=== PATIENT | male | born 1995 | race Caucasian/White ===

== ENCOUNTER 2018-03-12 18:05 | Emergency (ER) | payer SELFPAY ==
[2018-03-12] MEDS ORDERED: ONDANSETRON HCL/PF 4 MG/ 2ML VIAL IVP ONE (19:07)
[2018-03-12 19:12] LABS: ABG PH 7.46 (7.35-7.45)
[2018-03-12 19:13] LABS: ABG BASE EXCESS 0.8 (-2 - +2)
[2018-03-12] MEDS ORDERED: 0.9 % SODIUM CHLORIDE 1,000 ML IV ONE (19:38)
[2018-03-12] MEDS ORDERED: CALCIUM GLUCONATE 100 MG/ML VIAL IV ONE (19:42)
[2018-03-12] MEDS ORDERED: DEXTROSE 50% 50 ML DISP.SYRIN IVP ONE ×3 (19:42→21:36)
[2018-03-12] MEDS ORDERED: INSULIN REGULAR, HUMAN 100 UNIT/ML 3ML VIAL IV ONE (19:42)
[2018-03-12] MEDS ORDERED: fentaNYL CITRATE/PF 100 MCG/2 ML INJ. IVP ONE ×2 (19:53→21:11)
--- NOTE | 2018-03-12 20:49 | ED Physician Documentation ---
Abdominal Pain - HISTORIAN Historian: patient - HPI Stated Complaint: N/V/D Chief Complaint: Abdominal Pain Onset: days ago (2-3 days) Duration: constant Timing: worse Context: denies: out of country travel, bad food, recent trauma Severity: severe Quality: pain Associated Symptoms: nausea, vomiting, diarrhea ("too many to count"). denies: fever, chills, coffee ground emesis, grossly bloody stools Exacerbated by: nothing Relieved by: nothing Further Comments: yes (22 year old male patient presents with complaint of abdominal pain for the past 2-3 days; reports severe diarrhea "too many to count", c/o nausea, reports pain 7/10. Patient state he moved to [place] and has not gotten started on his routine dialysis; last treatment was 03/08/18 at [facility]. Patient with mild right nose bleed noted; blood on shirt, pants and hands. Patient is a poor historian; falls asleep during ROS.) - ROS CONST: recent illness (appears chronically ill) GI/: none (denies) CVS/RESP: none EYES/ENT: none MS/SKIN/LYMPH: leg swelling, rash (started 2-3 days ago ) NEURO/PSYCH: none (denies) - SOCIAL HX Smoking History: cigarettes - FAMILY HX Family History: denies: none - PAST HX Past History: other (ESRD; "heart murmur") Surgeries/Procedures: other (patient cannot recall) Allergies/Adverse Reactions: Allergies Allergy/AdvReac Type Severity Reaction Status Date / Time No Known Allergies Allergy Verified 03/12/18 19:38 - VITAL SIGNS Vital Signs: Vital Signs Temp Pulse Resp BP Pulse Ox 98.2 F 79 16 182/115 95 03/12/18 18:06 03/12/18 18:06 03/12/18 18:06 03/12/18 18:06 03/12/18 18:06 - REVIEWED ASSESSMENTS Nursing Assessment Reviewed: Yes Vitals Reviewed: Yes Progress - Progress Progress: K 7.0 Insulin, D50 and Calcium gluconate given IV [address] results - extensive ascites. Patient denies any history of ascites. Will transfer back to [facility] for stat dialysis and further evaluation 2034 Call to [facility] [address] Miranda - EKG/XRAY/CT EKG: rhythm (1 degree AVB) ED Results Lab/Radiology - Lab Results Lab Results: Lab Results 03/12/18 19:00 pH 7.46 H (7.35-7.45) pCO2 34 mmhg L mmhg (35-48) pO2 74 mmhg L mmhg (83-108) HCO3 25.5 Meq/L Meq/L (21-28) ABG O2 Sat Calc/Sunitha 97 % % (93-100) ABG Base Excess 0.8 (-2 - +2) - Radiology Radiology Impressions: CT abdomen and pelvis without contrast CLINICAL HISTORY: Abnormal liver function test. Abdominal pain. TECHNIQUE: CT abdomen and pelvis is performed without oral or intravenous administration of contrast. Sagittal and coronal reconstructions are performed by the technologist. FINDINGS: The visualized lung bases are clear. There is extensive ascites. The liver and spleen demonstrate normal attenuation without focal defect. There is thinning of the renal cortex bilaterally consistent with atrophy. There is no obvious pancreatic or adrenal abnormality. Bladder is unremarkable. IMPRESSION: Extensive ascites. Cardiomegaly. Bilateral renal atrophy. AP chest CLINICAL HISTORY: Dyspnea. FINDINGS: Examination of the chest in AP upright view demonstrates cardiomegaly. Monitor leads superimpose the chest. Lungs are free of coalescent infiltrate. IMPRESSION: Cardiomegaly. Electronically signed on Mar 12, 2018 8:59:26 PM GUEST SERVICES DIRECTOR by: Constantin Mcrae - Orders Orders: ED Orders Category Date Time Status Place IV Lock 1T Care 03/12/18 18:33 Active CHEST 1VIEW [RAD] Stat Exams 03/12/[address] ABD & PELVIS W/O CON Stat Exams 03/12/18 Taken ARTERIAL BLOOD GAS Routine Lab 03/12/18 19:00 Completed ARTERIAL BLOOD GAS Stat Lab 03/12/18 Uncollected CBC/PLATELET/DIFF Stat Lab 03/12/18 18:33 Received CMP Stat Lab 03/12/18 Received LIPASE Stat Lab 03/12/18 Received POTASSIUM Stat Lab 03/12/18 Ordered PT-INR Stat Lab 03/12/18 18:46 Received PTT Stat Lab 03/12/18 19:59 Received 0.9 % Sodium Chloride [Normal Saline] 1,000 ml Med 03/12/18 19:38 Discontinued IV .STK-MED Calcium Gluconate Med 03/12/18 19:42 Discontinued 1,000 mg IV NOW ONE Dextrose 50% [Dextrose 50%-Water Syringe] Med 03/12/18 19:42 Discontinued 50 ml IVP NOW ONE Insulin Regular, Human [Humulin R] Med 03/12/18 19:42 Discontinued 10 unit IV NOW ONE Ondansetron HCl/Pf [Zofran 4 mg/2 ml] Med 03/12/18 19:07 Discontinued 4 mg IVP NOW ONE fentaNYL CITRATE/PF [Duragesic] Med 03/12/18 19:53 Discontinued 50 mcg IVP NOW ONE Abdominal Pain Physical Exam - Physical Exam General Appearance: moderate distress EENT: eye inspection normal, ARIAN, TM's nml, dry mucous membranes, other (scant epistaxis from right nare) RESPIRATORY: no resp distress, chest non-tender, breath sounds normal CVS: reg rate & rhythm, heart sounds normal, equal pulses, no murmur, no gallop, PMI nml, no JVD, no friction rub, murmur (aortic stenosis 5/6), PMI displaced laterally ABDOMEN: soft, tenderness (generalized), decreased BS, guarding, other (severe ascites) BACK: normal inspection, no CVA tenderness SKIN: warm/dry, other (Rash - petechie over abdomen and back; macopapular rash on trunk) EXTREMITIES: edema, other (A/V fistula left upper arm - bruits auscultated) NEURO: oriented X3, motor nml, sensation nml, mood/affect nml (flat, sleepy) Vital Signs: Vital Signs Temp Pulse Resp BP Pulse Ox 98.2 F 79 16 182/115 95 03/12/18 18:06 03/12/18 18:06 03/12/18 18:06 03/12/18 18:06 03/12/18 18:06 Discharge Clincal Impression: ESRD (end stage renal disease), Hyperkalemia, Cardiomegaly Ascites Qualifiers: Ascites type: other type Qualified Code(s): R18.8 - Other ascites Aortic stenosis Qualifiers: Cardiac valve disease etiology: etiology unspecified Qualified Code(s): I35.0 - Nonrheumatic aortic (valve) stenosis Referrals: Primary Doctor,No [Primary Care Provider] - 2 Days Condition: Serious Disposition: 02 XFER SHT-TRM HOSP Decision to Admit: [id number] Decision Time: 21:09
[2018-03-12 22:32] VITALS: BP 167/92
--- NOTE | 2018-03-13 06:50 | Diagnostic Imaging Report ---
VANESSA ROSENTHAL (ARCHITECTURAL DESIGNER) - ER [facility] [place] [facility] [address] [facility] [address] [place], [place]. [address] Report Submission Date: Mar 12, 2018 8:19:49 PM TRIPLE VALVE MECHANIC Patient Study Name: PURNIMA NEELY Date: Mar 12, 2018 7:58:55 PM TRIPLE VALVE MECHANIC Modality Type: CT\SR Gender: M Description: CT ABD PELVIS W/O CO : 94 Institution: [facility] Physician: VANESSA ROSENTHAL (ROSIE) - ER Please disregard the prior report. Corrected report follows: CT abdomen and pelvis without contrast CLINICAL HISTORY: Abnormal liver function test. Abdominal pain. TECHNIQUE: CT abdomen and pelvis is performed without oral or intravenous administration of contrast. Sagittal and coronal reconstructions are performed by the technologist. FINDINGS: The visualized lung bases are clear. There is extensive ascites. The liver and spleen demonstrate normal attenuation without focal defect. There is thinning of the renal cortex bilaterally consistent with atrophy. There is no obvious pancreatic or adrenal abnormality. Bladder is unremarkable. IMPRESSION: Extensive ascites. Cardiomegaly. Bilateral renal atrophy. Addendum electronically signed by Constantin Mcrae on March 12, 2018 8:23:17 PM RYLAN HERRERA
--- NOTE | 2018-03-13 06:50 | Diagnostic Imaging Report ---
VANESSA ROSENTHAL (MALL MANAGER) - ER [facility] [address] [facility] [address] Report Submission Date: Mar 12, 2018 8:59:26 PM MACHINE SEWER Patient Study Name: PURNIMA NEELY Date: Mar 12, 2018 8:35:31 PM MACHINE SEWER Modality Type: DX Gender: M Description: CHEST : 94 Institution: [facility] Physician: VANESSA ROSENTHAL (MALL MANAGER) - ER AP chest CLINICAL HISTORY: Dyspnea. FINDINGS: Examination of the chest in AP upright view demonstrates cardiomegaly. Monitor leads superimpose the chest. Lungs are free of coalescent infiltrate. IMPRESSION: Cardiomegaly. Electronically signed on Mar 12, 2018 8:59:26 PM MACHINE SEWER by: Constantin HERRERA
[2018-03-13 08:16] LABS: BASOPHILS % 0.3 (0.0-1.5); EOSINOPHILS % 1.4 % (0.0-6.8); MEAN CORPUSCULAR HEMOGLOBIN 25.4 pg (28.0-34.0); MONOCYTES % 8.3 % (0.0-11.0); NEUTROPHILS # 3.2 # k/uL (1.4-7.7)
== END 2018-03-12 21:48 | disposition short-term general hospital (02) ==
LOC: ED 18:05
DX: N18.6 End stage renal disease (principal); E87.5 Hyperkalemia; I51.7 Cardiomegaly; R18.8 Other ascites; I35.0 Nonrheumatic aortic (valve) stenosis; Z99.2 Dependence on renal dialysis
CPT/HCPCS: 36415; 36600; 71045; 74176; 80053; 82803; 83690; 84132; 85025; 85610; 85730; 93005; 96374; 96375; 96376; 99285; J0610; J1815; J2405; J3010; S1016

== ENCOUNTER 2018-04-19 15:06 | Emergency (ER) | payer SELFPAY ==
--- NOTE | 2018-04-19 15:09 | ED Physician Documentation ---
General Adult - HISTORIAN Historian: patient - HPI Stated Complaint: abdominal pain Chief Complaint: Abdominal Pain Onset: days ago (2) Timing: still present Severity: mild Further Comments: yes (He states last week he was in [place] for pain in abdomen. He states for the last two days he has had n/v and no fever. He denies any vomiting today. He has had a small intake of water. He had dialysis yesterday. His provider is at [place]. He had a regular bowel movement this am. His pain is localized to lower left quad of abdomen and the abdomen is swollen according to him. Left leg is "usually" swollen although he states that he has noticed increased swelling. No pain in leg.) Last known Well Code/Unknown Code: Unknown - ROS CONST: no problems CVS/RESP: cough. denies: chest pain, shortness of breath GI/: abdominal pain, vomiting, nausea MS/SKIN/LYMPH: denies: rash NEURO/PSYCH: denies: headache - PAST HX Past History: other (CKD ) Immunizations: UTD Allergies/Adverse Reactions: Allergies Allergy/AdvReac Type Severity Reaction Status Date / Time No Known Allergies Allergy Verified 04/19/18 15:43 Home Medications: Ambulatory Orders Medication Instructions Recorded Calcium Acetate 1 tab PO DAILY 04/19/18 Carvedilol [Coreg] 1 tab PO BID 04/19/18 Labetalol HCl 3 tab PO BID 04/19/18 Lisinopril [Zestril] 1 tab PO BID 04/19/18 Nifedipine [Nifedipine ER] 1 tab PO DAILY 04/19/18 Sertraline HCl [Zoloft] 1 tab PO DAILY 04/19/18 hydrALAZINE HCL [Apresoline] 1 tab PO TID 04/19/18 - SOCIAL HX Smoking History: non-smoker Alcohol Use: none Drug Use: none - FAMILY HX Family History: No - VITAL SIGNS Vital Signs: Vital Signs Temp Pulse Resp BP Pulse Ox 167/92 03/12/18 21:48 - REVIEWED ASSESSMENTS Nursing Assessment Reviewed: Yes Vitals Reviewed: Yes Progress - Progress Progress: 1600: states pain is increasing DG 1640: pain slightly improved. He states at dialysis yesterday he left with a blood pressure of 160/128. DG 1700: Discussed case with Emma at [facility] for possible transfer DG 1720: requesting more pain med for pain 11/10 DG 1722: Emma called from [place] with accepting physician to ICU Dr Morgan MOORE ED Results Lab/Radiology - Radiology Radiology Impressions: Portable chest History: Cough PA and lateral chest dated April 09, 2018 is compared with March 12, 2018. The heart is enlarged, unchanged. Pulmonary vascularity is normal. Lungs are clear. There is no pleural effusion. Impression: Cardiomegaly, unchanged. No active disease. Electronically signed on Apr 19, 2018 4:26:19 PM CABIN CLEANING SUPERVISOR by: Machelle Michelle General Adult Physical Exam - PHYSICAL EXAM GENERAL APPEARANCE: no distress EENT: eye inspection normal, pharynx normal, dry mucous membranes NECK: normal inspection RESPIRATORY: no resp distress, chest non-tender, breath sounds normal CVS: reg rate & rhythm, heart sounds normal ABDOMEN: decreased BS, distended, guarding, other (mild tenderness with palpation on LLQ ) SKIN: jaundice EXTREMITIES: edema (2+ LEFT LOWER LEG ) NEURO: oriented X3, CN's nml as tested, motor nml, sensation nml, mood/affect nml, cognition normal Discharge Clincal Impression: Pericardial effusion, ESRD (end stage renal disease) Abdominal pain Qualifiers: Abdominal location: left lower quadrant Qualified Code(s): R10.32 - Left lower quadrant pain Ascites Qualifiers: Ascites type: other type Qualified Code(s): R18.8 - Other ascites Referrals: Primary Doctor,No [Primary Care Provider] - 2 Days Comments: Transfer to [place] Dr Morgan MOORE Condition: Critical Disposition: 02 XFER SHT-TRM HOSP Decision to Admit: NO Date of Decison to Admit: 04/19/18 Decision Time: 17:20
[2018-04-19] MEDS ORDERED: hydrALAZINE HCL 20 MG/1 ML IVP ONE ×2 (15:29→16:06)
[2018-04-19] MEDS ORDERED: 0.9 % SODIUM CHLORIDE 1,000 ML IV SCH (15:30)
[2018-04-19] MEDS ORDERED: fentaNYL CITRATE/PF 100 MCG/2 ML INJ. IVP ONE (15:32)
[2018-04-19] MEDS ORDERED: 0.9 % SODIUM CHLORIDE 1,000 ML IV ONE (15:34)
[2018-04-19 15:35] LABS: BASOPHILS % 0.3 (0.0-1.5); EOSINOPHILS % 2.6 % (0.0-6.8); MEAN CORPUSCULAR HEMOGLOBIN 25.7 pg (28.0-34.0); MONOCYTES % 5.3 % (0.0-11.0); NEUTROPHILS # 5.3 # k/uL (1.4-7.7)
[2018-04-19] MEDS ORDERED: HYDROmorphone HCL/PF 1 MG/ML VIAL IVP ONE ×2 (16:06→17:21)
[2018-04-19 18:09] VITALS: BP 191/132
--- NOTE | 2018-04-19 23:04 | Diagnostic Imaging Report ---
BHARGAV ZEE [facility] [address] [facility] [address] [place], [place]. [address] Report Submission Date: Apr 19, 2018 4:42:40 PM TUG BOAT ENGINEER Patient Study Name: PURNIMA NEELY Date: Apr 19, 2018 3:57:09 PM TUG BOAT ENGINEER Modality Type: CT\SR Gender: M Description: CT ABD PELVIS W/O CO : 94 Institution: [facility] Physician: BHARGAV ZEE CT abdomen and pelvis without contrast History: Abdominal pain. The patient received dialysis 3 times a week Technique: Helically acquired images were obtained from the hemidiaphragms to the pelvic floor without IV contrast or oral contrast. Findings: There is a very large amount of ascites throughout the abdomen and pelvis. The amount of ascites is much greater than expected typically in the setting of peritoneal dialysis. Additionally, no peritoneal dialysis catheter is identified. Please correlate clinically in this regard. There is a small pericardial effusion as well. On these images without IV contrast, which limits solid organ evaluation, the liver, spleen, adrenal glands and pancreas are unremarkable. The kidneys are severely atrophic bilaterally with small cysts. There are small calcifications laterally at the lower pole of the right kidney, possibly calyceal but possibly cortical. Secondary to the ascites, the bowel loops are centralized. There is a structure at the right lower quadrant which probably represents the appendix and appears normal. No free air is noted. The abdominal aorta is normal in caliber. Shotty retroperitoneal lymph nodes are present, probably reactive in nature in this young patient. The bladder is completely decompressed. Seminal vesicles and prostate gland are unremarkable. Several borderline to mildly enlarged bilateral inguinal nodes are present. The largest of these is on the right measuring 3.0 x 1.5 cm. These bilateral inguinal nodes are probably reactive. Please correlate clinically. Lung bases are clear. Bones are extremely dense diffusely consistent with renal osteodystrophy. Impression: THERE IS A LARGE AMOUNT OF ASCITES THROUGHOUT THE ABDOMEN AND PELVIS, MUCH GREATER THAN TYPICALLY SEEN IN THE SETTING OF PERITONEAL DIALYSIS. ADDITIONALLY, NO PERITONEAL DIALYSIS CATHETER IS SEEN. Please clinically correlate with regard to these findings. Due to the large amount of ascites, the bowel loops are centralized within the abdomen but there is no evidence for intestinal obstruction. No free air is seen. Small pericardial effusion. Severely atrophic kidneys with small cysts and small calcifications at the lower pole of the right kidney as described. There are several shotty retroperitoneal nodes and there are shotty to mildly enlarged bilateral inguinal lymph nodes. These findings are probably reactive in nature in this young patient. Please correlate clinically in this regard. Findings consistent with renal osteodystrophy. Electronically signed on Apr 19, 2018 4:42:40 PM TUG BOAT ENGINEER by: Machelle HERRERA
--- NOTE | 2018-04-19 23:05 | Diagnostic Imaging Report ---
BHARGAV ZEE [facility] [address] [facility] [address] [place], [place]. [address] Report Submission Date: Apr 19, 2018 4:26:19 PM BILINGUAL RECRUITER Patient Study Name: PURNIMA NEELY Date: Apr 19, 2018 3:39:03 PM BILINGUAL RECRUITER Modality Type: DX Gender: M Description: CHEST : 94 Institution: [facility] Physician: BHARGAV ZEE Portable chest History: Cough PA and lateral chest dated April 09, 2018 is compared with March 12, 2018. The heart is enlarged, unchanged. Pulmonary vascularity is normal. Lungs are clear. There is no pleural effusion. Impression: Cardiomegaly, unchanged. No active disease. Electronically signed on Apr 19, 2018 4:26:19 PM BILINGUAL RECRUITER by: Machelle Michelle Addendum: The title of this report should be PA and lateral chest not portable chest Addendum electronically signed by Machelle Michelle on April 19, 2018 4:27:10 PM BILINGUAL RECRUITER MTDD
== END 2018-04-19 18:21 | disposition short-term general hospital (02) ==
LOC: ED 15:06
DX: I31.3 Pericardial effusion (noninflammatory) (principal); N18.6 End stage renal disease; R10.32 Left lower quadrant pain; R18.8 Other ascites; Z99.2 Dependence on renal dialysis
CPT/HCPCS: 36415; 71046; 74176; 80053; 83690; 83880; 85025; 96365; 96375; 96376; 99285; J0360; J1170; J3010; J7030; S1016

== ENCOUNTER 2018-04-29 00:36 | Emergency (ER) | payer SELFPAY ==
--- NOTE | 2018-04-29 00:48 | ED Physician Documentation ---
General Adult - HISTORIAN Historian: patient - HPI Stated Complaint: R flank pain, shoulder pain Chief Complaint: General Adult Onset: days ago (4) Timing: still present Severity: moderate Further Comments: yes (Pt is a 23 yo male with chronic kidney disease on hemodialysis (MWFRI) and HTN seen here earlier this month and transferred to his providers at [facility]. Pt at that time, 10 days ago, had significant ascites, a small pericarial effusion, and elevated lipase. Pt returns to ER tonight with R flank pain and R shoulder pain. Pt reports n/v station captain.) - ROS CONST: weakness, chills EYES/ENT: none CVS/RESP: none GI/: abdominal pain, vomiting, nausea MS/SKIN/LYMPH: none - PAST HX Past History: other (ESRD, Ascites, Anemia, elevated lipase, depression, restless leg syndrome) Allergies/Adverse Reactions: Allergies Allergy/AdvReac Type Severity Reaction Status Date / Time No Known Allergies Allergy Verified 04/29/18 02:36 Home Medications: Ambulatory Orders Medication Instructions Recorded Calcium Acetate 1 tab PO DAILY 04/19/18 Carvedilol [Coreg] 1 tab PO BID 04/19/18 Labetalol HCl 3 tab PO BID 04/19/18 Lisinopril [Zestril] 1 tab PO BID 04/19/18 Nifedipine [Nifedipine ER] 1 tab PO DAILY 04/19/18 Sertraline HCl [Zoloft] 1 tab PO DAILY 04/19/18 hydrALAZINE HCL [Apresoline] 1 tab PO TID 04/19/18 - SOCIAL HX Smoking History: non-smoker - FAMILY HX Family History: No - VITAL SIGNS Vital Signs: Vital Signs Temp Pulse Resp BP Pulse Ox 191/132 04/19/18 18:06 - REVIEWED ASSESSMENTS Nursing Assessment Reviewed: Yes Vitals Reviewed: Yes Progress - Progress Progress: CXR & ABD X-ray: Findings: The heart is enlarged. Pulmonary vascularity is increased from the age. The bowel gas pattern is nonspecific. The entire abdomen and pelvis are not on the field of view.. No renal calcifications are identified. Impression: Large heart and pulmonary vessels for the patient's age The visualized abdomen is unremarkable portions excluded Dilaudid 1 mg IV x 2 Zofran 4 mg IV x 2 Transfer to [facility], Dr. Caal. - EKG/XRAY/CT EKG: NSR (HR=73; 1st degree A-V block; ) General Adult Physical Exam - PHYSICAL EXAM GENERAL APPEARANCE: moderate distress EENT: pharynx normal NECK: normal inspection, supple RESPIRATORY: no resp distress, chest non-tender, breath sounds normal CVS: reg rate & rhythm, heart sounds normal ABDOMEN: soft, normal bowel sounds, tenderness (R abd & flank), other (possible ascites) BACK: normal inspection, no CVA tenderness SKIN: warm/dry, pallor EXTREMITIES: normal range of motion, no evidence of injury, edema (brawny edema) NEURO: oriented X3, motor nml, sensation nml Discharge Clincal Impression: ESRD (end stage renal disease), Hyperkalemia, Pancreatitis Abdominal pain Qualifiers: Abdominal location: unspecified location Qualified Code(s): R10.9 - Unspecified abdominal pain Anemia Qualifiers: Anemia type: unspecified type Qualified Code(s): D64.9 - Anemia, unspecified Referrals: Primary Doctor,No [Primary Care Provider] - 2 Days Condition: Stable Disposition: 02 XFER SHT-TRM HOSP Decision to Admit: NO Decision Time: 04:24
[2018-04-29] MEDS ORDERED: HYDROmorphone HCL/PF 1 MG/ML VIAL IVP ONE ×3 (01:07→04:36)
[2018-04-29] MEDS ORDERED: ONDANSETRON HCL/PF 4 MG/ 2ML VIAL IVP ONE ×2 (01:07→03:00)
[2018-04-29] MEDS ORDERED: HYDROmorphone HCL/PF 2 MG/ML VIAL ONE (02:57)
--- NOTE | 2018-04-29 04:20 | Diagnostic Imaging Report ---
MARCO JORDAN [facility] [address] [facility] [address] [address] Report Submission Date: Apr 29, 2018 3:27:35 AM TENNIS CENTRE MANAGER Patient Study Name: PURNIMA NEELY Date: Apr 29, 2018 3:02:38 AM TENNIS CENTRE MANAGER Modality Type: DX Gender: M Description: ABD SERIES PA CHEST : 94 Institution: [facility] Physician: MARCO JORDAN Upright chest and supine abdomen Clinical history: Abdominal pain Findings: The heart is enlarged. Pulmonary vascularity is increased from the age. The bowel gas pattern is nonspecific. The entire abdomen and pelvis are not on the field of view.. No renal calcifications are identified. Impression: Large heart and pulmonary vessels for the patient's age The visualized abdomen is unremarkable portions excluded Electronically signed on Apr 29, 2018 3:27:35 AM TENNIS CENTRE MANAGER by: Gilbert Suarez Addendum: An upright abdomen does not show free air. The image is not marked as upright Addendum electronically signed by Gilbert Suarez on April 29, 2018 3:28:57 AM TENNIS CENTRE MANAGER MTDD
[2018-04-29 05:03] VITALS: BP 135/83
[2018-04-29 10:49] LABS: BASOPHILS % 0.3 (0.0-1.5); EOSINOPHILS % 5.4 % (0.0-6.8); MONOCYTES % 6.5 % (0.0-11.0)
== END 2018-04-29 04:52 | disposition short-term general hospital (02) ==
LOC: ED 00:36
DX: I12.0 Hypertensive chronic kidney disease with stage 5 chronic kidney disease or end stage renal disease (principal); N18.6 End stage renal disease; E87.5 Hyperkalemia; K85.90 Acute pancreatitis without necrosis or infection, unspecified; D64.9 Anemia, unspecified; R10.9 Unspecified abdominal pain; Z99.2 Dependence on renal dialysis
CPT/HCPCS: 36415; 74022; 80053; 83690; 83880; 84484; 85025; 85610; 85730; 93005; 96374; 96375; 96376; 99285; J1170; J2405; S1016

== ENCOUNTER 2018-05-28 19:53 | Emergency (ER) | payer MEDICARE, OTHER ==
[2018-05-28] MEDS ORDERED: 0.9 % SODIUM CHLORIDE 500 ML IV ONE (19:56)
[2018-05-28] MEDS ORDERED: hydrALAZINE HCL 20 MG/1 ML IVP ONE (20:08)
[2018-05-28 20:27] LABS: BASOPHILS % 0.5 (0.0-1.5); EOSINOPHILS % 6.2 % (0.0-6.8); MEAN CORPUSCULAR HEMOGLOBIN 26.3 pg (28.0-34.0); NEUTROPHILS # 4.9 # k/uL (1.4-7.7)
[2018-05-28 20:37] LABS: eGFR (Non-African) 11
[2018-05-28] MEDS ORDERED: LISINOPRIL 5 MG TABLET PO ONE (20:52)
[2018-05-28] MEDS ORDERED: ONDANSETRON HCL/PF 4 MG/ 2ML VIAL IVP ONE (20:52)
[2018-05-28] MEDS ORDERED: HYDROmorphone HCL/PF 1 MG/ML VIAL IVP ONE (20:52)
[2018-05-28] MEDS ORDERED: HYDROmorphone HCL/PF 2 MG/ML VIAL ONE (20:53)
[2018-05-28] MEDS ORDERED: LISINOPRIL 5 MG TABLET ONE (20:54)
--- NOTE | 2018-05-28 21:29 | ED Physician Documentation ---
General Adult - HISTORIAN Historian: patient, paramedics - [facility] Stated Complaint: Abd pain, N/V Chief Complaint: General Adult Further Comments: yes (23 year old male patient brought in from home with nausea and vomiting. Patient underwent diaylsis today but had to stop treatment 1 hour early, states he has vomited multiple times today. Has not been able to take medication due to abdominal pain; reports taking his morning medications, did not take noon or afternoon medications. Initial BP 209/124) - ROS CONST: recent illness ([facility] admission 04/19 and 04/29) EYES/ENT: none CVS/RESP: shortness of breath (with exerction) GI/: abdominal pain, vomiting, nausea. denies: problems urinating, diarrhea MS/SKIN/LYMPH: leg swelling, ankle swelling - PAST HX Past History: CHF (chronic- combined), hypertension, other (ESRD, anemia of chronic disease, neuropathy) Surgeries/Procedures: other (periotoneal dialysis catheter, umbilical hernia repair) - SOCIAL HX Smoking History: non-smoker - FAMILY HX Family History: No - VITAL SIGNS Vital Signs: Vital Signs Temp Pulse Resp BP Pulse Ox 135/83 04/29/18 04:59 - REVIEWED ASSESSMENTS Nursing Assessment Reviewed: Yes Vitals Reviewed: Yes <CHAYA ROSENTHAL - Last Filed: 05/29/18 07:09> - VITAL SIGNS Vital Signs: Vital Signs Temp Pulse Resp BP Pulse Ox 72 16 164/101 99 05/29/18 06:00 05/29/18 06:00 05/29/18 06:00 05/29/18 06:00 <Kalee Mohamud - Last Filed: 05/29/18 21:19> - PAST HX Allergies/Adverse Reactions: Allergies Allergy/AdvReac Type Severity Reaction Status Date / Time No Known Allergies Allergy Verified 05/28/18 20:17 Home Medications: Ambulatory Orders Medication Instructions Recorded B Comp No3/Folic/C/Biotin/Zinc 1 tab PO DAILY 05/28/18 [Nephplex Rx Tablet] Calcium Acetate [Phoslyra] 2,001 mg PO TID 05/28/18 Cinacalcet HCl [Sensipar] 60 mg PO DAILY 05/28/18 CloNIDine HCL [Catapress] 0.2 mg PO WEEK 05/28/18 Clonidine [Catapres-Tts 1] 1 each TOP WEEK 05/28/18 Diltiazem HCl [Cardizem Cd] 240 mg PO DAILY 05/28/18 Epoetin Ajay [Epogen] 10,000 units SQ [id number] 05/28/18 Furosemide [Lasix] 80 mg PO BID 05/28/18 Gabapentin 100 cap PO DAILY 05/28/18 Hydralazine HCl [APRESOLINE] 100 mg PO TID 05/28/18 Labetalol HCl 300 mg PO BID 05/28/18 Lisinopril [Zestril] 80 mg PO DAILY 05/28/18 Minoxidil [Loniten] 5 mg PO DAILY 05/28/18 Paricalcitol [Zemplar] 3 ml IV 9 05/28/18 Pramipexole Di-HCl [Mirapex] 0.25 tab PO DAILY 05/28/18 Sevelamer Carbonate [Renvela] 800 mg PO TID 05/28/18 Tramadol HCl [Ultram] 50 mg PO Q8 05/28/18 Ondansetron HCl Rapdis [Zofran Odt] 4 mg PO Q8 PRN 2 Days #30 tab 05/29/18 Progress - Progress Progress: Call to [facility] - case discussed with Mignon 2244 BP now 170/105 after 20mg of hydralazine IV, 40mg of labetalol IV, lisinopril 40 mg po and coreg 25mg po. Patient given a total of 2mg of IV dilaudid for abdominal pain. [address] Bui - patient is well known to him, multiple admissions related to non-compliance of medications. Feel like patient is OK to send home and follow up tomorrow. Lab is better today than previous ER admissions. Patient playing video games on his cell phone at present. States abdominal pain is now gone. 2300 Patient does not have any one to pick him up tonight. His brother is working weight shifter and cannot come to pick him up. BP remains elevated. Will keep patient as extended ED, continue BP management and DC home in AM with brother. Extensive discussion and teaching with patient regarding medications. Risks and benefits explained. Patient does not have on clonidine patch. 0030 Med list from [facility] does not match list given by patient. Patient states "I take whatever is in the bottles I have at home". It is very unclear what patient is taking at home. Patient does not have a clonidine patch on. 0645 Lab reported error in input information last night. Now reporting proBNP at >20,000. Call to [facility], requested recollect on lab. 07 Report to Kalee COLON - lab reordered. - EKG/XRAY/CT EKG: rhythm (SR, rate 63) <CHAYA ROSENTHAL - Last Filed: 05/29/18 07:09> - Progress Progress: 729 Patient on cell phone playing a game when I entered the room. He complains of nausea/vomiting/diarrhea with abdominal pain the past 2 days. He is asking for pain medication. Tramadol was offered. He refused, he wants dilaudid. Still waiting on repeat labs ordered by Chaya. 0830 Discussed with [facility] Hospitalist, refused admission stating he does not meet criteria. They report a BNP last month of 56,000 so there is improvement on today's results of 20,000. Recommended medical compliance and following up with Dialysis tomorrow. <Kalee Mohamud - Last Filed: 05/29/18 21:19> ED Results Lab/Radiology - Lab Results Lab Results: Lab Results 05/28/18 05/28/18 20:15 20:15 WBC 7.30 K/ul K/ul (4.00-12.00) RBC 3.12 M/ul L M/ul (3.90-5.20) Hgb 8.2 g/dL L g/dL (12.0-18.0) Hct 25.6 % L % (37.0-53.0) MCV 82.0 fl fl (80.0-100.0) MCH 26.3 pg L pg (28.0-34.0) MCHC 32.1 g/dL g/dL (30.0-36.0) RDW 15.9 % H % (11.3-14.3) Plt Count 250 K/mm3 K/mm3 (130-400) Neut % (Auto) 66.6 % % (39.0-79.0) Lymph % (Auto) 21.7 % % (16.0-50.0) [place] % (Auto) 5.0 % % (0.0-11.0) Eos % (Auto) 6.2 % % (0.0-6.8) Baso % (Auto) 0.5 (0.0-1.5) Neut # (Auto) 4.9 # k/uL # k/uL (1.4-7.7) Lymph # (Auto) 1.6 # k/uL # k/uL (0.6-4.0) [place] # (Auto) 0.4 # k/uL # k/uL (0.0-0.9) Eos # (Auto) 0.5 # k/uL # k/uL (0.0-0.6) Baso # (Auto) 0.0 # k/uL # k/uL (0.0-0.5) Sodium 138 mmol/L mmol/L (136-145) Potassium 5.4 mmol/L H mmol/L (3.5-5.1) Chloride 93 mmol/L L mmol/L (98-107) Carbon Dioxide 32 mmol/L H mmol/L (22-30) BUN 42 mg/dL H mg/dL (9-20) Creatinine 6.81 mg/dL H mg/dL (0.66-1.25) Est GFR ( Amer) 13 L (60 - ) Est GFR (Non-Af Amer) 11 L (60 - ) Glucose 97 mg/dL mg/dL (74-106) Calcium 9.2 mg/dL mg/dL (8.4-10.2) Total Bilirubin 0.6 mg/dL mg/dL (0.2-1.3) AST 58 U/L H U/L (15-46) ALT 18 U/L U/L (13-69) Alkaline Phosphatase 95 U/L U/L (38-126) Total Protein 7.0 g/dL g/dL (6.3-8.2) Albumin 4.1 g/dL g/dL (3.5-5.0) Lipase 133 U/L U/L (23-300) - Radiology Radiology Impressions: Computed tomography abdomen pelvis without contrast History: Right abdominal pain and vomiting Findings: Transverse abdomen and pelvis sections are obtained without contrast reveal cardiomegaly, pulmonary vascular congestion, pulmonary edema, trace left pleural effusion, moderate ascites, marked bilateral renal atrophy, and normal caliber bowel loops. A small right renal stone and small bilateral renal cysts are present. The liver, spleen, pancreas, and adrenals are unremarkable. Diffuse bone sclerosis is present. Pelvic sections reveal unremarkable bowel loops including a normal appendix. The prostate and seminal vesicles are unremarkable. The urinary bladder is empty. A large amount of pelvic ascites is present. Impression: 1. Cardiomegaly, pulmonary edema, and trace left pleural effusion consistent with congestive heart failure. 2. Normal appendix. 3. Moderate to large amount of ascites. 4. Marked [place] renal atrophy and renal osteodystrophy. Electronically signed on May 28, 2018 10:12:33 PM HEEL COVERER MACHINE OPERATOR by: George Saenz Chest two views History: Left chest wall pain Findings: Pulmonary edema, cardiomegaly, and pulmonary vascular congestion are observed. There is no pleural effusion. Impression: Congestive heart failure. Electronically signed on May 28, 2018 10:09:48 PM HEEL COVERER MACHINE OPERATOR by: George Saenz - Orders Orders: ED Orders Category Date Time Status Place IV Lock 1T Care 05/28/18 19:56 Active CBC/PLATELET/DIFF Stat Lab 05/28/18 20:15 Completed CMP Stat Lab 05/28/18 20:15 Completed INFLUENZA A&B Stat Lab 05/28/18 21:04 Ordered LIPASE Stat Lab 05/28/18 20:15 Completed 0.9 % Sodium Chloride [Normal Saline] 500 ml Med 05/28/18 19:56 Discontinued IV NOW HYDROmorphone HCL/PF [Dilaudid] Med 05/28/18 20:52 Discontinued 1 mg IVP NOW ONE HYDROmorphone HCL/PF [Dilaudid] Med 05/28/18 20:53 Discontinued 2 mg .ROUTE .STK-MED ONE Lisinopril [Prinivil] Med 05/28/18 20:54 Discontinued 40 mg .ROUTE .STK-MED ONE Lisinopril [Prinivil] Med 05/28/18 20:52 Discontinued 40 mg PO NOW ONE Ondansetron HCl/Pf [Zofran] Med 05/28/18 20:52 Discontinued 4 mg IVP NOW ONE hydrALAZINE HCL [Apresoline] Med 05/28/18 20:08 Discontinued 20 mg IVP NOW ONE <CHAYA ROSENTHAL - Last Filed: 05/29/18 07:09> - Lab Results Lab Results: Lab Results 05/29/18 05/29/18 05/29/18 07:31 07:31 07:31 WBC 5.90 K/ul K/ul (4.00-12.00) RBC 3.26 M/ul L M/ul (3.90-5.20) Hgb 8.7 g/dL L g/dL (12.0-18.0) Hct 26.7 % L % (37.0-53.0) MCV 82.0 fl fl (80.0-100.0) MCH 26.7 pg L pg (28.0-34.0) MCHC 32.6 g/dL g/dL (30.0-36.0) RDW 15.5 % H % (11.3-14.3) Plt Count 229 K/mm3 K/mm3 (130-400) Neut % (Auto) 57.8 % % (39.0-79.0) Lymph % (Auto) 29.1 % % (16.0-50.0) [place] % (Auto) 6.2 % % (0.0-11.0) Eos % (Auto) 6.3 % % (0.0-6.8) Baso % (Auto) 0.6 (0.0-1.5) Neut # (Auto) 3.4 # k/uL # k/uL (1.4-7.7) Lymph # (Auto) 1.7 # k/uL # k/uL (0.6-4.0) [place] # (Auto) 0.4 # k/uL # k/uL (0.0-0.9) Eos # (Auto) 0.4 # k/uL # k/uL (0.0-0.6) Baso # (Auto) 0.0 # k/uL # k/uL (0.0-0.5) Sodium 138 mmol/L mmol/L (136-145) Potassium 6.0 mmol/L H mmol/L (3.5-5.1) Chloride 94 mmol/L L mmol/L (98-107) Carbon Dioxide 29 mmol/L mmol/L (22-30) BUN 48 mg/dL H mg/dL (9-20) Creatinine 7.84 mg/dL H mg/dL (0.66-1.25) Estimated Creat Clear 19 Est GFR ( Amer) 11 L (60 - ) Est GFR (Non-Af Amer) 9 L (60 - ) Glucose 85 mg/dL mg/dL (74-106) Calcium 9.5 mg/dL mg/dL (8.4-10.2) Total Bilirubin 0.7 mg/dL mg/dL (0.2-1.3) AST 30 U/L U/L (15-46) ALT 17 U/L U/L (13-69) Alkaline Phosphatase 99 U/L U/L (38-126) NT-Pro-B Natriuret Pep > 89255.0 pg/mL H pg/mL (15.0-125.0) Total Protein 7.3 g/dL g/dL (6.3-8.2) Albumin 4.3 g/dL g/dL (3.5-5.0) Lipase Influenza Type A Ag Influenza Type B Ag 05/28/18 05/28/18 05/28/18 21:33 20:15 20:15 WBC 7.30 K/ul K/ul (4.00-12.00) RBC 3.12 M/ul L M/ul (3.90-5.20) Hgb 8.2 g/dL L g/dL (12.0-18.0) Hct 25.6 % L % (37.0-53.0) MCV 82.0 fl fl (80.0-100.0) MCH 26.3 pg L pg (28.0-34.0) MCHC 32.1 g/dL g/dL (30.0-36.0) RDW 15.9 % H % (11.3-14.3) Plt Count 250 K/mm3 K/mm3 (130-400) Neut % (Auto) 66.6 % % (39.0-79.0) Lymph % (Auto) 21.7 % % (16.0-50.0) [place] % (Auto) 5.0 % % (0.0-11.0) Eos % (Auto) 6.2 % % (0.0-6.8) Baso % (Auto) 0.5 (0.0-1.5) Neut # (Auto) 4.9 # k/uL # k/uL (1.4-7.7) Lymph # (Auto) 1.6 # k/uL # k/uL (0.6-4.0) [place] # (Auto) 0.4 # k/uL # k/uL (0.0-0.9) Eos # (Auto) 0.5 # k/uL # k/uL (0.0-0.6) Baso # (Auto) 0.0 # k/uL # k/uL (0.0-0.5) Sodium 138 mmol/L mmol/L (136-145) Potassium 5.4 mmol/L H mmol/L (3.5-5.1) Chloride 93 mmol/L L mmol/L (98-107) Carbon Dioxide 32 mmol/L H mmol/L (22-30) BUN 42 mg/dL H mg/dL (9-20) Creatinine 6.81 mg/dL H mg/dL (0.66-1.25) Estimated Creat Clear Est GFR ( Amer) 13 L (60 - ) Est GFR (Non-Af Amer) 11 L (60 - ) Glucose 97 mg/dL mg/dL (74-106) Calcium 9.2 mg/dL mg/dL (8.4-10.2) Total Bilirubin 0.6 mg/dL mg/dL (0.2-1.3) AST 58 U/L H U/L (15-46) ALT 18 U/L U/L (13-69) Alkaline Phosphatase 95 U/L U/L (38-126) NT-Pro-B Natriuret Pep Total Protein 7.0 g/dL g/dL (6.3-8.2) Albumin 4.1 g/dL g/dL (3.5-5.0) Lipase 133 U/L U/L (23-300) Influenza Type A Ag Negative (NEGATIVE) Influenza Type B Ag Negative (NEGATIVE) 05/28/18 19:56 WBC RBC Hgb Hct MCV MCH MCHC RDW Plt Count Neut % (Auto) Lymph % (Auto) [place] % (Auto) Eos % (Auto) Baso % (Auto) Neut # (Auto) Lymph # (Auto) [place] # (Auto) Eos # (Auto) Baso # (Auto) Sodium Potassium Chloride Carbon Dioxide BUN Creatinine Estimated Creat Clear Est GFR ( Amer) Est GFR (Non-Af Amer) Glucose Calcium Total Bilirubin AST ALT Alkaline Phosphatase NT-Pro-B Natriuret Pep > 80999.0 pg/mL H pg/mL (15.0-125.0) Total Protein Albumin Lipase Influenza Type A Ag Influenza Type B Ag - Orders Orders: ED Orders Category Date Time Status Place IV Lock 1T Care 05/28/18 19:[address] IV Lock 1T Care 05/29/18 06:57 Active CHEST 2VIEW [RAD] Stat Exams 05/28/[address] ABD & PELVIS W/O CON Stat Exams 05/28/18 Completed BNP [NT-proBNP] Stat Lab 05/28/18 19:56 Completed BNP [NT-proBNP] Stat Lab 05/29/18 07:31 Received CBC/PLATELET/DIFF Stat Lab 05/28/18 20:15 Completed CBC/PLATELET/DIFF Stat Lab 05/29/18 07:31 Completed CMP Stat Lab 05/28/18 20:15 Completed CMP Stat Lab 05/29/18 07:31 Received INFLUENZA A&B Stat Lab 05/28/18 21:33 Completed LIPASE Stat Lab 05/28/18 20:15 Completed 0.9 % Sodium Chloride [Normal Saline] 500 ml Med 05/28/18 19:56 Discontinued IV NOW Carvedilol [Coreg] Med 05/28/18 23:00 Discontinued 25 mg PO BS Carvedilol [Coreg] Med 05/28/18 22:34 Discontinued 25 mg PO NOW ONE HYDROmorphone HCL/PF [Dilaudid] Med 05/28/18 20:52 Discontinued 1 mg IVP NOW ONE HYDROmorphone HCL/PF [Dilaudid] Med 05/28/18 20:53 Discontinued 2 mg .ROUTE .STK-MED ONE Hydralazine HCl [Apresoline] Med 05/28/18 23:09 Discontinued 50 mg PO NOW ONE Hydralazine HCl [Apresoline] Med 05/29/18 06:33 Discontinued 50 mg PO NOW ONE Labetalol HCl [Trandate Inj] Med 05/28/18 21:44 Discontinued 20 mg IV NOW ONE Labetalol HCl [Trandate] Med 05/28/18 21:50 Discontinued 20 mg .ROUTE .STK-MED ONE Labetalol HCl [Trandate] Med 05/28/18 22:30 Discontinued 20 mg .ROUTE .STK-MED ONE Labetalol HCl [Trandate] Med 05/28/18 22:28 Discontinued 20 mg IV NOW ONE Lisinopril [Prinivil] Med 05/28/18 20:54 Discontinued 40 mg .ROUTE .STK-MED ONE Lisinopril [Prinivil] Med 05/28/18 20:52 Discontinued 40 mg PO NOW ONE Ondansetron HCl Rapdis [Zofran Odt] Med 05/29/18 04:29 Discontinued 4 mg .ROUTE .STK-MED ONE Ondansetron HCl Rapdis [Zofran Odt] Med 05/29/18 04:30 Discontinued 4 mg PO NOW ONE Ondansetron HCl/Pf [Zofran] Med 05/28/18 20:52 Discontinued 4 mg IVP NOW ONE Promethazine HCl [Phenergan] Med 05/29/18 04:26 Discontinued 25 mg PO .STK-MED ONE hydrALAZINE HCL [Apresoline] Med 05/28/18 20:08 Discontinued 20 mg IVP NOW ONE traMADol HCL [Ultram] Med 05/29/18 01:35 Discontinued 100 mg .ROUTE .STK-MED ONE traMADol HCL [Ultram] Med 05/29/18 01:34 Discontinued 50 mg PO NOW ONE traMADol HCL [Ultram] Med 05/29/18 07:31 Discontinued 50 mg PO NOW ONE EKG WITH COMPARISON Stat Ther 05/28/18 22:40 Completed <Kalee Mohamud - Last Filed: 05/29/18 21:19> General Adult Physical Exam - PHYSICAL EXAM GENERAL APPEARANCE: moderate distress EENT: eye inspection normal, ENT inspection normal, pharynx normal, no signs of dehydration, ARIAN, no nystagmus, TM's nml RESPIRATORY: no resp distress, chest non-tender, other (BBS decreased in bases) CVS: reg rate & rhythm, equal pulses, no gallop, PMI nml, no JVD, no friction rub, murmur (Mitral regurg, aortic stenosis auscultated.) ABDOMEN: no organomegaly, normal bowel sounds, no abdominal bruit, tenderness (RUQ and RLQ), decreased BS, distended SKIN: normal color, warm/dry, NR, INT, PAL, DR EXTREMITIES: non-tender, normal range of motion, no evidence of injury, edema (3+), other (LUQ with fistula; bruit present) NEURO: oriented X3, CN's nml as tested, motor nml, sensation nml, mood/affect nml <CHAYA ROSENTHAL - Last Filed: 05/29/18 07:09> - PHYSICAL EXAM RESPIRATORY: no resp distress (breath sounds clear to auscultation bilaterally. No crackles noted.), other <Kalee Mohmaud - Last Filed: 05/29/18 21:19> Discharge Decision to Admit: NO <CHAYA ROSENTHAL - Last Filed: 05/29/18 07:09> Decision to Admit: NO Date of Decison to Admit: 05/29/18 Decision Time: 09:12 <Kalee Mohamud - Last Filed: 05/29/18 21:19> Clincal Impression: ESRD (end stage renal disease), Hyperkalemia, Gastroenteritis Ascites Qualifiers: Ascites type: other type Qualified Code(s): R18.8 - Other ascites Prescriptions: Ondansetron HCl Rapdis [Zofran Odt] 4 mg PO Q8 PRN 2 Days #30 tab PRN Reason: nausea/vomiting Referrals: Primary Doctor,No [Primary Care Provider] - 2 Days Additional Instructions: 1. Take all medications as prescribed. 2. Do Dialysis as scheduled on Monday, Mon, Monday 3. Follow up with Professor [facility] [employer] as already scheduled 4. Return to ER for new or worsening symptoms Condition: Serious Disposition: 01 HOME, SELF-CARE
[2018-05-28] MEDS ORDERED: LABETALOL HCL 20 MG/4 ML SYRINGE IV ONE (21:44)
[2018-05-28] MEDS ORDERED: LABETALOL HCL 100 MG/20 ML ONE ×2 (21:50→22:30)
[2018-05-28] MEDS ORDERED: LABETALOL HCL 100 MG/20 ML IV ONE (22:28)
[2018-05-28] MEDS ORDERED: CARVEDILOL 12.5 MG TABLET PO ONE (22:34)
[2018-05-28] MEDS ORDERED: CARVEDILOL 12.5 MG TABLET PO SCH (23:00)
[2018-05-28] MEDS ORDERED: HYDRALAZINE HCL 25 MG TABLET PO ONE (23:09)
[2018-05-29] MEDS ORDERED: traMADol HCL 50 MG TABLET PO ONE ×2 (01:34→07:31)
[2018-05-29] MEDS ORDERED: traMADol HCL 50 MG TABLET ONE (01:35)
[2018-05-29] MEDS ORDERED: PROMETHAZINE HCL 25 MG TABLET PO ONE (04:26)
[2018-05-29] MEDS ORDERED: ONDANSETRON HCL 4 MG TAB.RAPDIS ONE (04:29)
[2018-05-29] MEDS ORDERED: ONDANSETRON HCL 4 MG TAB.RAPDIS PO ONE (04:30)
--- NOTE | 2018-05-29 05:37 | Diagnostic Imaging Report ---
VANESSA ROSENTHAL (FUR BUYER) - ER [facility] [address] [address] Report Submission Date: May 28, 2018 10:09:48 PM EXTRACTION SUPERVISOR Patient Study Name: PURNIMA NEELY Date: May 28, 2018 9:45:24 PM EXTRACTION SUPERVISOR Modality Type: DX Gender: M Description: CHEST 2VIEW : 89 Institution: [facility] Physician: VANESSA ROSENTHAL (FUR BUYER) - ER Chest two views History: Left chest wall pain Findings: Pulmonary edema, cardiomegaly, and pulmonary vascular congestion are observed. There is no pleural effusion. Impression: Congestive heart failure. Electronically signed on May 28, 2018 10:09:48 PM EXTRACTION SUPERVISOR by: George HERRERA
--- NOTE | 2018-05-29 05:37 | Diagnostic Imaging Report ---
VANESSA ROSENTHAL (ORCHID HAND) - ER [facility] [address] [facility] [address] [place], [place]. [address] Report Submission Date: May 28, 2018 10:12:33 PM CAR WRECKER Patient Study Name: PURNIMA NEELY Date: May 28, 2018 9:49:02 PM CAR WRECKER Modality Type: CT\SR Gender: M Description: CT ABD PELVIS W/O CO : 89 Institution: [facility] Physician: VANESSA ROSENTHAL (ROSIE) - ER Computed tomography abdomen pelvis without contrast History: Right abdominal pain and vomiting Findings: Transverse abdomen and pelvis sections are obtained without contrast reveal cardiomegaly, pulmonary vascular congestion, pulmonary edema, trace left pleural effusion, moderate ascites, marked bilateral renal atrophy, and normal caliber bowel loops. A small right renal stone and small bilateral renal cysts are present. The liver, spleen, pancreas, and adrenals are unremarkable. Diffuse bone sclerosis is present. Pelvic sections reveal unremarkable bowel loops including a normal appendix. The prostate and seminal vesicles are unremarkable. The urinary bladder is empty. A large amount of pelvic ascites is present. Impression: 1. Cardiomegaly, pulmonary edema, and trace left pleural effusion consistent with congestive heart failure. 2. Normal appendix. 3. Moderate to large amount of ascites. 4. Marked [place] renal atrophy and renal osteodystrophy. Electronically signed on May 28, 2018 10:12:33 PM CAR WRECKER by: George HERRERA
[2018-05-29] MEDS ORDERED: HYDRALAZINE HCL 25 MG TABLET PO ONE (06:33)
[2018-05-29 07:37] LABS: BASOPHILS % 0.6 (0.0-1.5); EOSINOPHILS % 6.3 % (0.0-6.8); MEAN CORPUSCULAR HEMOGLOBIN 26.7 pg (28.0-34.0); MONOCYTES % 6.2 % (0.0-11.0); NEUTROPHILS # 3.4 # k/uL (1.4-7.7)
[2018-05-29] MEDS ORDERED: hydrALAZINE HCL 20 MG/1 ML IVP ONE (08:45)
[2018-05-29 09:28] VITALS: BP 168/114
== END 2018-05-29 09:27 | disposition home or self-care (01) ==
LOC: ED 19:53
DX: N18.6 End stage renal disease (principal); E87.5 Hyperkalemia; K52.9 Noninfective gastroenteritis and colitis, unspecified; R18.8 Other ascites; Z99.2 Dependence on renal dialysis
CPT/HCPCS: 36415; 71046; 74176; 80053; 83690; 83880; 85025; 87400; 96374; 96375; 96376; 99284; 99285; J0360; J1170; J2405; J3490; A9270; S1016

== ENCOUNTER 2018-06-05 23:09 | Emergency (ER) | payer MEDICARE, OTHER ==
--- NOTE | 2018-06-05 23:54 | ED Physician Documentation ---
General Adult - HPI Stated Complaint: SOA and cough while lying down Chief Complaint: General Adult Additional Information: Patient presents to ED with a 5 day history of cough, shortness of breath, worse with lying flat and increased abdominal distention. Patient is ESRD on dialysis (M, W, F). He gets paracentesis about every 8 weeks for ascites. He denies fever. Admits to nausea and some abdominal pain. Onset: days ago (5) Timing: still present Severity: moderate - ROS CONST: denies: fever, sweating EYES/ENT: denies: sore throat CVS/RESP: shortness of breath, cough. denies: chest pain GI/: abdominal pain, nausea MS/SKIN/LYMPH: leg swelling NEURO/PSYCH: denies: headache - PAST HX Past History: other (ESRD) Other History: none Surgeries/Procedures: none Allergies/Adverse Reactions: Allergies Allergy/AdvReac Type Severity Reaction Status Date / Time No Known Allergies Allergy Verified 06/05/18 23:27 Home Medications: Ambulatory Orders Medication Instructions Recorded B Comp No3/Folic/C/Biotin/Zinc 1 tab PO DAILY 05/28/18 [Nephplex Rx Tablet] Calcium Acetate [Phoslyra] 2,001 mg PO TID 05/28/18 Cinacalcet HCl [Sensipar] 60 mg PO DAILY 05/28/18 CloNIDine HCL [Catapress] 0.2 mg PO WEEK 05/28/18 Clonidine [Catapres-Tts 1] 1 each TOP WEEK 05/28/18 Diltiazem HCl [Cardizem Cd] 240 mg PO DAILY 05/28/18 Epoetin Ajay [Epogen] 10,000 units SQ [id number] 05/28/18 Furosemide [Lasix] 80 mg PO BID 05/28/18 Gabapentin 100 cap PO DAILY 05/28/18 Hydralazine HCl [APRESOLINE] 100 mg PO TID 05/28/18 Labetalol HCl 300 mg PO BID 05/28/18 Lisinopril [Zestril] 80 mg PO DAILY 05/28/18 Minoxidil [Loniten] 5 mg PO DAILY 05/28/18 Paricalcitol [Zemplar] 3 ml IV 05/28/18 Pramipexole Di-HCl [Mirapex] 0.25 tab PO DAILY 05/28/18 Sevelamer Carbonate [Renvela] 800 mg PO TID 05/28/18 Tramadol HCl [Ultram] 50 mg PO Q8 05/28/18 Ondansetron HCl Rapdis [Zofran Odt] 4 mg PO Q8 PRN 2 Days #30 tab 05/29/18 - SOCIAL HX Smoking History: non-smoker Alcohol Use: none Drug Use: none - FAMILY HX Family History: No - VITAL SIGNS Vital Signs: Vital Signs Temp Pulse Resp BP Pulse Ox 98.5 F 97 H 22 211/138 97 06/05/18 23:10 06/05/18 23:10 06/05/18 23:10 06/05/18 23:10 06/05/18 23:10 - REVIEWED ASSESSMENTS Nursing Assessment Reviewed: Yes Vitals Reviewed: Yes Progress - Results/Orders Results/Orders: 0100 [facility] [place] [facility] Will contact physician for possible transfer. - Progress Progress: [address] scan due to radiation exposure. [address] Santizo, at [facility], agrees with admission ED Results Lab/Radiology - Radiology Radiology Impressions: Report Submission Date: Jun 06, 2018 12:45:[address] MACHINE OPERATOR Patient Study Name: PURNIMA NEELY Date: Jun 06, 2018 12:12:[address] MACHINE OPERATOR Modality Type: DX Gender: M Description: CHEST 2VIEW : 89 Institution: [facility] Physician: JOHN ABBASI Pa and lateral chest Clinical history : Orthopnea Comparison: May 28, 2018 Technique pa and lateral upright Findings: There is cardiomegaly and pulmonary vascular congestion. No pleural effusion is seen. The peripheral lung eid are clear. Thoracic spondylosis is present.. Impression: Cardiomegaly and pulmonary vascular congestion similar to the previous chest radiograph Electronically signed on Jun 06, 2018 12:45:[address] MACHINE OPERATOR by: Gilbert Suarez - Orders Orders: ED Orders Category Date Time Status Place IV Lock 1T Care 06/05/18 23:[address] ABD & PELVIS W/O CON Stat Exams 06/05/[address] CHEST W/O CONTRAST Stat Exams 06/05/18 Ordered BNP [NT-proBNP] Stat Lab 06/05/18 Ordered CBC/PLATELET/DIFF Routine Lab 06/05/18 Ordered CMP Routine Lab 06/05/18 Ordered CloNIDine HCL [Catapress] Med 06/05/18 23:41 Once 0.2 mg PO NOW ONE HYDROcodone /APAP 5/325 [[place] 5/325] Med 06/05/18 23:41 Once 1 each PO NOW ONE Ondansetron HCl/Pf [Zofran] Med 06/05/18 23:41 Once 4 mg IVP NOW ONE General Adult Physical Exam - PHYSICAL EXAM GENERAL APPEARANCE: no distress EENT: ARIAN NECK: supple RESPIRATORY: other (bibasilar crackles) CVS: reg rate & rhythm, heart sounds normal ABDOMEN: non-tender, distended, other (fluid wave) BACK: no CVA tenderness SKIN: warm/dry EXTREMITIES: no edema (+1 edema bilaterally to knee) NEURO: oriented X3, CN's nml as tested, motor nml Discharge Clincal Impression: ESRD (end stage renal disease) Ascites Qualifiers: Ascites type: other type Qualified Code(s): R18.8 - Other ascites Referrals: Primary Doctor,No [Primary Care Provider] - 2 Days Comments: Patient transferred to [facility] under care of Dr. Santizo for paracentesis. Condition: Stable Disposition: ADMITTED INPATIENT Decision to Admit: [id number] Date of Decison to Admit: 06/06/18 Decision Time: 01:48
[2018-06-06] MEDS: CloNIDine HCL 0.1 MG TABLET PO ONE (00:11)
[2018-06-06] MEDS: HYDROcodone /APAP 5/325 1 EACH TABLET PO ONE (00:11)
[2018-06-06] MEDS: ONDANSETRON HCL/PF 4 MG/ 2ML VIAL IVP ONE (00:11)
[2018-06-06 00:21] LABS: BASOPHILS % 0.5 (0.0-1.5); MEAN CORPUSCULAR HEMOGLOBIN 26.2 pg (28.0-34.0); MONOCYTES % 5.7 % (0.0-11.0); NEUTROPHILS # 5.5 # k/uL (1.4-7.7)
[2018-06-06] MEDS: hydrALAZINE HCL 20 MG/1 ML IVP ONE (01:07)
[2018-06-06] MEDS: OXYCODONE HCL PO ONE ×2 (02:24)
[2018-06-06] MEDS: ACETAMINOPHEN PO ONE ×2 (02:24)
[2018-06-06 03:48] VITALS: BP 177/116
--- NOTE | 2018-06-06 06:18 | Diagnostic Imaging Report ---
JOHN ABBASI [facility] [address] [facility] [address] [place], [place]. [address] Report Submission Date: Jun 06, 2018 12:45:11 AM COOK SUPERVISOR Patient Study Name: PURNIMA NEELY Date: Jun 06, 2018 12:12:47 AM COOK SUPERVISOR Modality Type: DX Gender: M Description: CHEST 2VIEW : 89 Institution: [facility] Physician: JOHN ABBASI Pa and lateral chest Clinical history : Orthopnea Comparison: May 28, 2018 Technique pa and lateral upright Findings: There is cardiomegaly and pulmonary vascular congestion. No pleural effusion is seen. The peripheral lung eid are clear. Thoracic spondylosis is present.. Impression: Cardiomegaly and pulmonary vascular congestion similar to the previous chest radiograph Electronically signed on Jun 06, 2018 12:45:11 AM COOK SUPERVISOR by: Gilbert HERRERA
== END 2018-06-06 03:15 | disposition short-term general hospital (02) ==
LOC: ED 23:09
DX: N18.6 End stage renal disease (principal); R18.8 Other ascites; Z99.2 Dependence on renal dialysis
CPT/HCPCS: 36415; 71046; 80053; 83880; 85025; 96374; 96375; 99285; A9270; J0360; J2405; S1016

== ENCOUNTER 2018-06-18 21:29 | Emergency (ER) | payer MEDICARE, OTHER ==
--- NOTE | 2018-06-18 21:40 | ED Physician Documentation ---
General Adult - HISTORIAN Historian: patient - HPI Stated Complaint: BILATERAL EDEMA Chief Complaint: Lower Extremity Problem Onset: days ago (2) Timing: still present Severity: mild Further Comments: yes (He states he did tell the nurse at dialysis today and they offered him Tylenol but he waited until he got home today and took some. Denies a fever. He has no other complaints today) - ROS CONST: no problems - PAST HX Past History: renal disease Immunizations: UTD Allergies/Adverse Reactions: Allergies Allergy/AdvReac Type Severity Reaction Status Date / Time No Known Allergies Allergy Verified 06/18/18 21:36 Home Medications: Ambulatory Orders Medication Instructions Recorded Furosemide [Lasix] 80 mg PO BID 05/28/18 Hydralazine HCl [APRESOLINE] 100 mg PO TID 05/28/18 Labetalol HCl 300 mg PO BID 05/28/18 Lisinopril [Zestril] 40 mg PO DAILY 05/28/18 Nifedipine [Nifedipine ER] 60 mg PO D 06/06/18 Sertraline HCl 50 mg PO D 06/06/18 - SOCIAL HX Smoking History: non-smoker Alcohol Use: none Drug Use: none - FAMILY HX Family History: No - VITAL SIGNS Vital Signs: Vital Signs Temp Pulse Resp BP Pulse Ox 97.2 F L 81 20 163/107 99 06/18/18 21:32 06/18/18 21:32 06/18/18 21:32 06/18/18 21:32 06/18/18 21:32 - REVIEWED ASSESSMENTS Nursing Assessment Reviewed: Yes Vitals Reviewed: Yes General Adult Physical Exam - PHYSICAL EXAM GENERAL APPEARANCE: no distress EENT: eye inspection normal, no signs of dehydration NECK: normal inspection RESPIRATORY: no resp distress, chest non-tender, breath sounds normal CVS: reg rate & rhythm, heart sounds normal ABDOMEN: soft, normal bowel sounds, non-tender BACK: normal inspection SKIN: jaundice (mildly ) EXTREMITIES: non-tender, normal range of motion, edema (2+ mild redness approx at ankles bilaterally ) NEURO: oriented X3 Discharge Clincal Impression: Cellulitis and abscess of foot excluding toe, ESRD (end stage renal disease) Referrals: Primary Doctor,No [Primary Care Provider] - 2 Days Comments: 1. Keflex 250 mg take 1 by mouth every 24 hours x 7 days 2. Meds as prescribed 3. Notify Actuarial Intern in AM 4. Keep legs elevated 5. Return to ER for any concerns Condition: Stable Disposition: 01 HOME, SELF-CARE Decision to Admit: NO Date of Decison to Admit: 06/18/18 Decision Time: 21:50
[2018-06-18] MEDS: CEPHALEXIN 250 MG CAPSULE PO ONE (22:02)
[2018-06-18 22:04] VITALS: BP 169/101
== END 2018-06-18 22:03 | disposition home or self-care (01) ==
LOC: ED 21:29
DX: L03.119 Cellulitis of unspecified part of limb (principal); L02.619 Cutaneous abscess of unspecified foot; N18.6 End stage renal disease; Z99.2 Dependence on renal dialysis
CPT/HCPCS: 99283